=== PATIENT | male | born 1995 | race Caucasian/White ===

== ENCOUNTER 2020-08-10 14:03 | Emergency (ER) | payer BC, MEDICAID ==
[2020-08-10] MEDS ORDERED: Sodium Chloride 0.9% 10 ML Syringe FLUSH PRN (14:07)
[2020-08-10] MEDS ORDERED: HYDROmorphone 0.5 MG/0.5 ML Syringe IVPUSH ONE (14:07)
[2020-08-10] MEDS ORDERED: Diphtheria,Pertussis(Acell),Tetanus Vaccine 0.5 ML Syringe IM ONE (14:09)
[2020-08-10] MEDS ORDERED: Bacitracin Oint 1 GM U/D Packet TOP ONE (14:10)
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
[2020-08-10] MEDS ORDERED: Ondansetron 4 MG Tab.DIS PO ONE (14:44)
[2020-08-10] MEDS ORDERED: Ondansetron 4 MG Tab.DIS ONE (14:45)
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
== END 2020-08-10 15:52 | disposition home or self-care (01) ==
LOC: JP.ED 14:03
DX: S42.022A Displaced fracture of shaft of left clavicle, initial encounter for closed fracture (principal); S20.319A Abrasion of unspecified front wall of thorax, initial encounter; S00.31XA Abrasion of nose, initial encounter; Z23 Encounter for immunization; V86.59XA Driver of other special all-terrain or other off-road motor vehicle injured in nontraffic accident, initial encounter
CPT/HCPCS: 71046; 73000; 90471; 90715; 96374; 99284; A9270; J1170